=== PATIENT | male | born 1940 | race Two or more races ===

== ENCOUNTER 2023-12-21 16:02 | Emergency (ER) | payer OTHER ==
[~2023-12-21] VITALS: Ht 172.7 cm; Wt 70.6 kg
[2023-12-21 16:30] VITALS: BP 182/84; PULSE 82; RESP 18; O2SAT 96
== END 2023-12-21 18:47 | disposition home or self-care (01) ==
LOC: ER 16:02
DX: S80.212A Abrasion, left knee, initial encounter (principal); I10 Essential (primary) hypertension; E78.5 Hyperlipidemia, unspecified; Z86.73 Personal history of transient ischemic attack (TIA), and cerebral infarction without residual deficits; W18.39XA Other fall on same level, initial encounter; Y93.01 Activity, walking, marching and hiking; Y92.098 Other place in other non-institutional residence as the place of occurrence of the external cause; Y99.8 Other external cause status
CPT/HCPCS: 73562; 73590; 73610